=== PATIENT | female | born 1980 | race Caucasian/White ===

== ENCOUNTER 2024-03-24 04:18 | Inpatient (IN) | payer OTHER ==
[2024-03-24] MEDS ORDERED: ACETAMINOPHEN 500 MG TABLET (FP) ONE (06:20)
[2024-03-24] MEDS ORDERED: GABAPENTIN 300 MG CAPSULE ONE (06:20)
[2024-03-24] MEDS ORDERED: ONDANSETRON 4 MG/2 ML VIAL IVPUSH PRN (07:11)
[2024-03-24] MEDS ORDERED: oxyCODONE HCL 5 MG TABLET PO PRN ×2 (07:11)
[2024-03-24] MEDS ORDERED: ACETAMINOPHEN 500 MG TABLET (FP) PO ONE (07:30)
[2024-03-24] MEDS ORDERED: GABAPENTIN 300 MG CAPSULE PO ONE (07:30)
[2024-03-24] MEDS ORDERED: PROPOFOL 20 ML ONE (07:49)
[2024-03-24] MEDS ORDERED: ROCURONIUM BROMIDE 50 MG/5 ML SYRINGE ONE ×2 (07:50→09:49)
[2024-03-24] MEDS ORDERED: MIDAZOLAM HCL 2 MG/2 ML SINGLE DOSE VIAL ONE (07:50)
[2024-03-24] MEDS ORDERED: HEPARIN NA (PORCINE) 5,000 UNITS/ML 1ML VIAL ONE (08:16)
[2024-03-24] MEDS: ceFAZolin SODIUM 1 GM VIAL IVPB ONE (08:45)
[2024-03-24] MEDS ORDERED: DEXAMETHASONE SOD PHOSPHATE 4 MG/1 ML VIAL ONE (08:49)
[2024-03-24] MEDS ORDERED: ceFAZolin SODIUM 1 GM VIAL ONE ×2 (08:49→08:50)
[2024-03-24] MEDS: BUPIVACAINE HCL/PF 0.5% (5MG/ML) 10 ML VIAL IJ ONE (09:13)
[2024-03-24] MEDS ORDERED: ACETAMINOPHEN INJECTION 100 ML ONE (09:32)
[2024-03-24] MEDS ORDERED: HYDROmorphone HCl 2 MG/ML VIAL ONE (09:37)
[2024-03-24] MEDS ORDERED: SUGAMMADEX SODIUM 200 MG/2 ML VIAL ONE (09:51)
[2024-03-24] MEDS ORDERED: KETOROLAC TROMETHAMINE 30 MG/1 ML VIAL IVPUSH PRN (11:20)
[2024-03-24] MEDS ORDERED: BISACODYL 5 MG TABLET.DR (FP) PO PRN (11:20)
[2024-03-24] MEDS ORDERED: ACETAMINOPHEN 325 MG TABLET (FP) PO PRN (11:46)
[2024-03-24] MEDS: LACTATED RINGERS SOLUTION 1,000 ML IV SCH (13:30)
[2024-03-24] MEDS: IBUPROFEN 800 MG/8 ML IJ IVPB PRN (13:44)
[2024-03-24] MEDS: ACETAMINOPHEN 1000 MG/100 ML BAG IVPB SCH (15:39)
[2024-03-24] MEDS: CEFAZOLIN 2 GM in DEXTROSE 5%-WATER - 100 ML IVPB ONE (15:39)
[2024-03-24] MEDS: CEFAZOLIN 1 GM in DEXTROSE 5%-WATER - 50 ML IVPB SCH (17:19)
[2024-03-24 17:32] VITALS: RESP 18
[2024-03-24] MEDS ORDERED: CEFAZOLIN 1 GM in DEXTROSE 5%-WATER - 50 ML IVPB SCH (18:00)
[2024-03-24] MEDS: DOCUSATE SODIUM 100 MG CAPSULE (FP) PO PRN (20:07)
[2024-03-24] MEDS: SIMETHICONE 80 MG TAB.CHEW (FP) PO PRN (20:07)
[2024-03-24] MEDS: IBUPROFEN 400 MG TABLET (FP) PO PRN (20:07)
[2024-03-25 07:16] LABS: HEMATOCRIT 34.7 % (32.4-45.2); HEMOGLOBIN 11.5 GM/dL (10.7-15.3); MCH 32.5 pg (25.7-33.7); MEAN CELL VOLUME 98.4 fl (80-96); MEAN PLT VOLUME 8.5 fl (7.5-11.1); PLATELET COUNT 217 10^3/uL (134-434); RBC 3.52 M/mm3 (3.60-5.2); RDW 15.3 % (11.6-15.6); WHITE BLOOD COUNT 6.5 K/mm3 (4.0-10.0)
[2024-03-25] MEDS ORDERED: IBUPROFEN 600 MG TABLET (FP) PO PRN (11:20)
[2024-03-25 11:25] VITALS: BP 110/72; PULSE 70; TEMP 98.2
== END 2024-03-25 15:15 | disposition home or self-care (01) | DRG 519 ==
LOC: JASUSAT 04:18 → J2C 11:20 → J3W 13:35
PROVIDERS: ADMIT Specialist; ATTEND Specialist
PROC: 8E0W0CZ Robotic Assisted Procedure of Trunk Region, Open Approach (ICD-10-PCS; 2024-03-24)
PROC: 0UT90ZZ Resection of Uterus, Open Approach (ICD-10-PCS; principal; 2024-03-24 08:00)
PROC: 0UT70ZZ Resection of Bilateral Fallopian Tubes, Open Approach (ICD-10-PCS; 2024-03-24 08:00)
DX: D25.9 Leiomyoma of uterus, unspecified (principal); N92.0 Excessive and frequent menstruation with regular cycle; R10.2 Pelvic and perineal pain
CPT/HCPCS: 36415; 81025; 85027; 88307-TC; 94010; 94760; J0131; J1644